=== PATIENT | female | born 1980 | race Caucasian/White ===

== ENCOUNTER 2023-11-11 02:32 | Emergency (ER) | payer OTHER, SELFPAY ==
--- NOTE | ~2023-11-11 | XR_ITS ---
AP and lateral views of the sacrum/coccyx CLINICAL HISTORY: Trauma FINDINGS: Suggestion of oblique nondisplaced fracture of the mid coccyx. No other fracture or disloca tion seen. Visualized joint spaces are intact. Soft tissues are unremarkable. IMPRESSION: Suspected oblique, nondisplaced fracture of the mid coccyx. Reviewed, dictated and finalized at [facility].
[2023-11-11 02:34] VITALS: BP 114/75; PULSE 80; RESP 17; TEMP 36.4; O2SAT 100
[2023-11-11 02:40] VITALS: PULSE 89
[2023-11-11 02:41] VITALS: BP 114/75; PULSE 74; RESP 15; TEMP 36.4; O2SAT 100
[2023-11-11] MEDS: HYDROcodone/acetaminophen (*CRX) 5-325 MG TABLET 1 TAB PO (03:35)
--- NOTE | 2023-11-11 03:44 | ED.GENADULT ---
HPI - General Adult General Chief complaint: Unspecified Stated complaint: fall, back pain Time Seen by Provider: 11/11/23 02:46 History of Present Illness HPI narrative: Patient is a 43-year-old female who presents ER with pain at her coccyx. She was cleaning out her truck when she missed a step and fell down onto her buttock directly. She did not strike her head or lose consciousness. She has no back pain. She has pain trying to ambulate. No leg pain, able to walk. Related Data Allergies Allergy/AdvReac Type Severity Reaction Status Date / Time No Known Allergies Allergy Verified 11/11/23 02:40 Review of Systems Constitutional: Constitutional: Reports no additional constitutional complaints Musculoskeletal: Musculoskeletal: Denies back pain, Denies arthralgias and Denies joint swelling Comments: buttock pain Integumentary/Breasts: Skin/Breast: Reports system reviewed and no additional complaints, except as docu PMFSH Past Medical History Medical History (Updated 11/11/23 @ 04:59 by Dany Henley MD) Healthy female adult Surgical History Surgical History (Updated 11/11/23 @ 03:49 by Dany Henley MD) History of section Exam Narrative: GENERAL: Well-appearing, well-nourished, and in no acute distress. HEAD: Normocephalic, atraumatic. ENT: Mucous membranes moist. CHEST: Clear to auscultation. No respiratory distress. HEART: Regular rate and rhythm. Normal peripheral pulses. BACK: no midline tenderness at T/L-spine. There is tenderness down near the coccyx without bruising or swelling to the gluteal cleft. EXTREMITIES: Normal range of motion. No edema. NEURO: Alert and oriented x3. PSYCH: Normal mood and affect. Course Course Emergency Course: Mild improvement pain with Tylenol with hydrocodone. Informed of imaging results. Discussed pain control for home. Discharge. Vital Signs Vital signs: Vital Signs Temperature 97.6 F 11/11/23 02:34 Pulse Rate 80 11/11/23 02:34 Respiratory Rate 17 11/11/23 02:34 Blood Pressure 114/75 11/11/23 02:34 Pulse Oximetry 100 11/11/23 02:34 Oxygen Delivery Room Air 11/11/23 02:34 Temperature 97.6 F 11/11/23 02:41 Pulse Rate 74 11/11/23 02:41 Respiratory Rate 15 11/11/23 02:41 Blood Pressure 114/75 11/11/23 02:41 Pulse Oximetry 100 11/11/23 02:41 Oxygen Delivery Room Air 11/11/23 02:34 Medical Decision Making Vital Signs Vital Signs: Vital Signs Temperature 97.6 F 11/11/23 02:34 Pulse Rate 80 11/11/23 02:34 Respiratory Rate 17 11/11/23 02:34 Blood Pressure 114/75 11/11/23 02:34 Pulse Oximetry 100 11/11/23 02:34 Oxygen Delivery Room Air 11/11/23 02:34 Temperature 97.6 F 11/11/23 02:41 Pulse Rate 74 11/11/23 02:41 Respiratory Rate 15 11/11/23 02:41 Blood Pressure 114/75 11/11/23 02:41 Pulse Oximetry 100 11/11/23 02:41 Oxygen Delivery Room Air 11/11/23 02:34 Imaging Data My impression: X-ray sacrum/coccyx: Coccyx fracture Discharge Plan Discharge Clinical Impression: Closed fracture of coccyx Patient Disposition: Home, Self-Care Condition: Stable Instructions: Coccyx Injury (ED) Additional Instructions: return the ER if you suffered a new injury, you have numbness or weakness of a leg, you have inability to urinate/ defecate, have additional concerns. You may want to purchase an inflatable donut for sitting to decrease your pain. Prescriptions: New hydrocodone-acetaminophen 5-325 mg tablet 1 tablet PO Q6H PRN (Reason: pain) Qty: 20 0RF Follow-up/Referrals: Luther Caro MD [Primary Care Provider] - Stand Alone Forms: Work/School Release IP
== END 2023-11-11 05:30 | disposition home or self-care (01) ==
PROVIDERS: Emergency Provider Emergency Medicine; PCP Emergency Medicine
DX: S32.2XXA Fracture of coccyx, initial encounter for closed fracture (principal); W17.89XA Other fall from one level to another, initial encounter
CPT/HCPCS: 72220; 99283; A9270